=== PATIENT | male | born 1965 | race Two or more races ===

== ENCOUNTER 2018-12-22 13:04 | Outpatient (CLI) | payer MEDICARE, MEDICAID ==
--- NOTE | 2018-12-22 13:54 | RAD ---
SCOLIOSIS STUDY: HISTORY: Scoliosis of thoracolumbar region. FINDINGS: Approximately 46 degrees dextroscoliosis of the lumbar vertebral column and 33 degrees levoscoliosis of the lower thoracic vertebral column. Marked generalized spondylosis. IMPRESSION: Scoliosis as above. POS: OFF
== END 2018-12-22 13:05 | disposition home or self-care (01) ==
LOC: MADRAD 13:04
PROVIDERS: ATTEND General Practice
DX: M41.25 Other idiopathic scoliosis, thoracolumbar region (principal)
CPT/HCPCS: 72081

== ENCOUNTER 2025-01-21 21:45 | Emergency (ER) | payer MEDICARE, MEDICAID ==
[~2025-01-21 21:45] MED LIST: Iopamidol 370 76% 100 ML VIAL ONE
[2025-01-21 22:32] LABS: #Basophils 0.1 thou/uL (0.0-0.2); #Eosinophils 0.0 thou/uL (0.0-0.7); #Lymphocytes 0.8 thou/uL (1.20-3.40); #Monocytes 0.6 thou/uL (0.11-0.59); #Neutrophils 5.7 thou/uL (1.40-6.50); %Basophils 1.1 % (0.0-1.0); %Eosinophils 0.6 % (0.0-10.0); %Lymphocytes 11.7 % (21.0-51.0); %Monocytes 7.6 % (0.0-10.0); %Neutrophils 79.0 % (42.0-75.0); Hematocrit 41.8 % (42.0-52.0); Hemoglobin 14.7 g/dL (14.0-18.0); Mean Corpuscular Hemoglobin 33.0 pg (27.0-31.0); Mean Corpuscular Volume 94.0 fl (78.0-98.0); Platelet Count 194 10x3/uL (130-400); Red Blood Cell (RBC) Count 4.45 mill/uL (4.70-6.10); White Blood Cell (WBC) Count 7.2 10x3/uL (4.8-10.8)
[2025-01-21 22:50] LABS: ALT (SGPT) 21 U/L (Less than 45); AST (SGOT) 35 U/L (11-34); Albumin 3.9 g/dL (3.1-4.5); Alkaline Phosphatase 61 U/L (40-110); Anion Gap 16 mmol/L (10-20); BUN (Urea Nitrogen) 22 mg/dL (8.4-25.7); Bilirubin, Total 0.8 mg/dL (0.3-1.2); Calc. Creatinine Clearance 0 mL/min (70-130); Calcium 8.5 mg/dL (7.8-10.44); Carbon Dioxide 25 mmol/L (22-29); Chloride 102 mmol/L (98-107); Globulin 3.2 g/dL (2.4-3.5); Glucose 128 mg/dL (70-105); Lipase 27 U/L (8-78); Potassium 3.7 mmol/L (3.5-5.1); Sodium 139 mmol/L (136-145); Troponin I 0.022 ng/mL (< 0.028)
[2025-01-22 00:44] LABS: Glucose, Urine (Dipstick) Negative (Negative); Leukocyte Negative (Negative); Protein, Urine (Dipstick) Negative (Neg-Trace); Specific Gravity, Urine 1.010 (1.005-1.030)
[2025-01-22 00:49] LABS: Bacteria/HPF Rare-Few HPF (None Seen); CAUTI Indications for Culture Pelvic or flank pain; RBC/HPF 0-3 HPF (0-3); Urine Culture Reflex No No; WBC/HPF 0-3 HPF (0-3)
[2025-01-22] MEDS ORDERED: Acetaminophen 500 MG TAB ONE (01:05)
[2025-01-22] MEDS ORDERED: Dicyclomine 10 MG CAP ONE (01:05)
== END 2025-01-22 01:13 | disposition home or self-care (01) ==
LOC: MADERS 21:45
DX: R10.9 Unspecified abdominal pain (principal)
CPT/HCPCS: 74177; 80053; 81001; 83690; 84484; 85025; 93005; J7030; Q9967